=== PATIENT | male | born 1975 | race Caucasian/White ===

== ENCOUNTER 2020-07-24 14:23 | Inpatient (IN) | payer BC, SELFPAY ==
[~2020-07-24] VITALS: Ht 172.7 cm; Wt 159.7 kg
[2020-07-24 14:25] VITALS: Ht 172.7 cm; Wt 159.7 kg
[2020-07-24 15:38] LABS: CALCIUM 8.1 mg/dL (8.5-10.1); CARBON DIOXIDE 30.8 mmol/L (21-32); CHLORIDE SERUM 93 mmol/L (98-107); CREATININE SERUM 1.2 mg/dL (0.7-1.3); GFR1 > 60 mL/min; GLUCOSE SERUM 123 mg/dL (74-106); SODIUM SERUM 132 mmol/L (136-145)
[2020-07-24 15:42] LABS: BASOPHIL % 0.3 % (0-2); PLATELET COUNT 215 x10^3mcL (130-400); RED CELL DISTRIBUTION WIDTH 14.3 % (11.5-14.5)
[2020-07-24 15:44] LABS: ALKALINE PHOSPHATASE 49 U/L (46-116); ALT/SGPT 47 U/L (16-63); AST/SGOT 46 U/L (15-37); BILIRUBIN TOTAL 0.87 mg/dL (0.20-1.00); TOTAL PROTEIN, SERUM 7.4 g/dL (6.4-8.2)
[2020-07-24 15:45] LABS: ALBUMIN 3.1 g/dL (3.4-5.0)
[2020-07-24 19:53] VITALS: BP 127/77
[2020-07-24 20:55] LABS: CHOLESTEROL/HDL RATIO 4.3
[2020-07-24 21:45] VITALS: BP 143/67
[2020-07-25] VITALS (7 sets, daily range): BP systolic 99–147; BP diastolic 50–74
[2020-07-25 07:43] LABS: BASOPHIL % 0.3 % (0-2); PLATELET COUNT 208 x10^3mcL (130-400); RED CELL DISTRIBUTION WIDTH 14.3 % (11.5-14.5)
[2020-07-25 07:44] LABS: CALCIUM 8.3 mg/dL (8.5-10.1); CARBON DIOXIDE 30.4 mmol/L (21-32); CHLORIDE SERUM 94 mmol/L (98-107); GFR1 > 60 mL/min; GLUCOSE SERUM 126 mg/dL (74-106); MAGNESIUM 2.1 mg/dL (1.8-2.4); PHOSPHOROUS 2.1 mg/dL (2.5-4.9); SODIUM SERUM 133 mmol/L (136-145)
[2020-07-25 08:24] LABS: POTASSIUM SERUM 2.8 mmol/L (3.5-5.1)
[2020-07-25 20:04] LABS: microscopic required? YES; urine erythrocyte 2+ (NEGATIVE)
[2020-07-25 20:21] LABS: AMPHETAMINE QUAL UR NONE DETECTED (See below)
[2020-07-26 05:48] VITALS: BP 132/88
[2020-07-26 07:02] LABS: BASOPHIL % 0.3 % (0-2); PLATELET COUNT 286 x10^3mcL (130-400); RED CELL DISTRIBUTION WIDTH 14.3 % (11.5-14.5)
[2020-07-26 07:32] LABS: CALCIUM 8.9 mg/dL (8.5-10.1); CARBON DIOXIDE 29.1 mmol/L (21-32); CHLORIDE SERUM 95 mmol/L (98-107); CREATININE SERUM 1.2 mg/dL (0.7-1.3); GFR1 > 60 mL/min; GLUCOSE SERUM 155 mg/dL (74-106); MAGNESIUM 2.2 mg/dL (1.8-2.4); PHOSPHOROUS 1.9 mg/dL (2.5-4.9); POTASSIUM SERUM 3.2 mmol/L (3.5-5.1); SODIUM SERUM 135 mmol/L (136-145)
[2020-07-26 09:24] LABS: C REACTIVE PROTEIN 24.2 mg/dL (<=0.9)
[2020-07-26 13:06] VITALS: BP 128/70
[2020-07-26 15:06] LABS: BILIRUBIN DIRECT 0.36 mg/dL (0.0-0.2); BILIRUBIN TOTAL 0.7 mg/dL (0.20-1.00); TOTAL PROTEIN, SERUM 7.8 g/dL (6.4-8.2)
[2020-07-26 15:10] LABS: ALBUMIN 2.9 g/dL (3.4-5.0)
[2020-07-26 17:01] VITALS: BP 124/68
[2020-07-26 22:03] VITALS: BP 128/69
[2020-07-27 06:10] VITALS: BP 129/73
[2020-07-27 07:32] LABS: BASOPHIL % 0.1 % (0-2); PLATELET COUNT 311 x10^3mcL (130-400); RED CELL DISTRIBUTION WIDTH 14.1 % (11.5-14.5)
[2020-07-27 08:03] LABS: CARBON DIOXIDE 31.8 mmol/L (21-32); CHLORIDE SERUM 97 mmol/L (98-107); CREATININE SERUM 0.9 mg/dL (0.7-1.3); GFR1 > 60 mL/min; GLUCOSE SERUM 117 mg/dL (74-106); MAGNESIUM 2.4 mg/dL (1.8-2.4); PHOSPHOROUS 3.6 mg/dL (2.5-4.9); POTASSIUM SERUM 3.3 mmol/L (3.5-5.1); SODIUM SERUM 138 mmol/L (136-145)
[2020-07-27 08:18] VITALS: BP 107/55
[2020-07-27 09:11] LABS: BILIRUBIN DIRECT 0.4 mg/dL (0.0-0.2); BILIRUBIN TOTAL 0.7 mg/dL (0.20-1.00); TOTAL PROTEIN, SERUM 6.7 g/dL (6.4-8.2)
[2020-07-27 09:49] LABS: ALBUMIN 2.7 g/dL (3.4-5.0)
[2020-07-27 12:43] VITALS: BP 117/60
[2020-07-27 17:59] VITALS: BP 114/61
[2020-07-27 20:38] VITALS: BP 97/49
[2020-07-28 05:54] VITALS: BP 117/62
[2020-07-28 07:02] LABS: PLATELET COUNT 347 x10^3mcL (130-400); RED CELL DISTRIBUTION WIDTH 14.5 % (11.5-14.5)
[2020-07-28 07:10] LABS: BASOPHIL % 0 % (0-2)
[2020-07-28 07:37] LABS: C REACTIVE PROTEIN 9.5 mg/dL (<=0.9); CALCIUM 8.4 mg/dL (8.5-10.1); CARBON DIOXIDE 32.5 mmol/L (21-32); CHLORIDE SERUM 99 mmol/L (98-107); CREATININE SERUM 0.8 mg/dL (0.7-1.3); GFR1 > 60 mL/min; GLUCOSE SERUM 112 mg/dL (74-106); POTASSIUM SERUM 3.7 mmol/L (3.5-5.1); SODIUM SERUM 139 mmol/L (136-145)
[2020-07-28 08:20] LABS: BILIRUBIN DIRECT 0.24 mg/dL (0.0-0.2); BILIRUBIN TOTAL 0.61 mg/dL (0.20-1.00); TOTAL PROTEIN, SERUM 6.6 g/dL (6.4-8.2)
[2020-07-28 08:22] LABS: ALBUMIN 2.4 g/dL (3.4-5.0)
[2020-07-28 08:51] VITALS: BP 132/84
[2020-07-28 12:14] VITALS: BP 126/72
[2020-07-28 17:03] VITALS: BP 113/54
[2020-07-28 21:13] VITALS: BP 108/49
[2020-07-29 05:36] VITALS: BP 118/45
[2020-07-29 07:38] LABS: BASOPHIL % 0.3 % (0-2); PLATELET COUNT 388 x10^3mcL (130-400); RED CELL DISTRIBUTION WIDTH 14.3 % (11.5-14.5)
[2020-07-29 08:10] LABS: C REACTIVE PROTEIN 9.8 mg/dL (<=0.9); CALCIUM 8.8 mg/dL (8.5-10.1); CHLORIDE SERUM 98 mmol/L (98-107); CREATININE SERUM 0.8 mg/dL (0.7-1.3); GFR1 > 60 mL/min; GLUCOSE SERUM 99 mg/dL (74-106); MAGNESIUM 2.3 mg/dL (1.8-2.4); POTASSIUM SERUM 3.3 mmol/L (3.5-5.1); SODIUM SERUM 140 mmol/L (136-145)
[2020-07-29 08:42] VITALS: BP 126/67
[2020-07-29 09:25] LABS: BILIRUBIN TOTAL 0.73 mg/dL (0.20-1.00)
[2020-07-29 09:26] LABS: ALBUMIN 2.5 g/dL (3.4-5.0); TOTAL PROTEIN, SERUM 6.1 g/dL (6.4-8.2)
[2020-07-29 09:29] LABS: BILIRUBIN DIRECT 0.16 mg/dL (0.0-0.2)
[2020-07-29 13:58] VITALS: BP 135/82
[2020-07-29 17:25] VITALS: BP 117/57
[2020-07-29 21:20] VITALS: BP 114/71
[2020-07-30 05:29] VITALS: BP 127/55
[2020-07-30 07:36] LABS: ALBUMIN 2.4 g/dL (3.4-5.0); BILIRUBIN DIRECT 0.23 mg/dL (0.0-0.2); BILIRUBIN TOTAL 0.57 mg/dL (0.20-1.00); TOTAL PROTEIN, SERUM 6.5 g/dL (6.4-8.2)
[2020-07-30 08:23] VITALS: BP 110/69
[2020-07-30 08:44] LABS: C REACTIVE PROTEIN 6.2 mg/dL (<=0.9); CALCIUM 8.9 mg/dL (8.5-10.1); CARBON DIOXIDE 29.2 mmol/L (21-32); CHLORIDE SERUM 99 mmol/L (98-107); CREATININE SERUM 0.8 mg/dL (0.7-1.3); GFR1 > 60 mL/min; GLUCOSE SERUM 112 mg/dL (74-106); MAGNESIUM 2.2 mg/dL (1.8-2.4); POTASSIUM SERUM 3.9 mmol/L (3.5-5.1); SODIUM SERUM 138 mmol/L (136-145)
[2020-07-30 10:18] LABS: RED CELL DISTRIBUTION WIDTH 14.3 % (11.5-14.5)
[2020-07-30 10:22] LABS: BASOPHIL % 3.8 % (0-2)
[2020-07-30 10:23] LABS: PLATELET COUNT 501 x10^3mcL (130-400)
[2020-07-30 11:59] VITALS: BP 111/66
[2020-07-30 16:00] VITALS: BP 114/67
[2020-07-30 20:55] VITALS: BP 122/50
[2020-07-31 06:21] VITALS: BP 114/70
[2020-07-31 07:01] LABS: BASOPHIL % 0.4 % (0-2)
[2020-07-31 07:08] LABS: RED CELL DISTRIBUTION WIDTH 14.9 % (11.5-14.5)
[2020-07-31 07:14] LABS: C REACTIVE PROTEIN 3.5 mg/dL (<=0.9); CALCIUM 8.8 mg/dL (8.5-10.1); CARBON DIOXIDE 34.6 mmol/L (21-32); CHLORIDE SERUM 102 mmol/L (98-107); CREATININE SERUM 0.9 mg/dL (0.7-1.3); GFR1 > 60 mL/min; GLUCOSE SERUM 106 mg/dL (74-106); MAGNESIUM 2.1 mg/dL (1.8-2.4); POTASSIUM SERUM 3.5 mmol/L (3.5-5.1); SODIUM SERUM 141 mmol/L (136-145)
[2020-07-31 08:48] VITALS: BP 112/65
[2020-07-31 09:14] LABS: PLATELET COUNT 532 x10^3mcL (130-400)
[2020-07-31 12:15] VITALS: BP 111/63
[2020-07-31 16:14] VITALS: BP 105/58
[2020-07-31 20:37] VITALS: BP 118/63
[2020-08-01 05:40] VITALS: BP 137/78
[2020-08-01 08:41] VITALS: BP 115/72
[2020-08-01 12:22] VITALS: BP 115/60
[2020-08-01 16:07] VITALS: BP 115/68
[2020-08-01 20:14] VITALS: BP 110/69
[2020-08-02 04:57] VITALS: BP 113/67
[2020-08-02 07:20] LABS: BASOPHIL % 1.5 % (0-2)
[2020-08-02 07:37] VITALS: BP 130/73
[2020-08-02 07:57] LABS: C REACTIVE PROTEIN 2.2 mg/dL (<=0.9); CALCIUM 8.6 mg/dL (8.5-10.1); CARBON DIOXIDE 32.4 mmol/L (21-32); CHLORIDE SERUM 102 mmol/L (98-107); CREATININE SERUM 0.9 mg/dL (0.7-1.3); GFR1 > 60 mL/min; GLUCOSE SERUM 105 mg/dL (74-106); POTASSIUM SERUM 3.7 mmol/L (3.5-5.1); SODIUM SERUM 139 mmol/L (136-145)
[2020-08-02 08:07] LABS: RED CELL DISTRIBUTION WIDTH 14.8 % (11.5-14.5)
[2020-08-02 08:08] LABS: PLATELET COUNT 595 x10^3mcL (130-400)
[2020-08-02 12:54] VITALS: BP 133/80
[2020-08-02 17:11] VITALS: BP 127/64
[2020-08-02 21:33] VITALS: BP 118/67
[2020-08-03 06:22] VITALS: BP 118/70
[2020-08-03 07:51] LABS: BASOPHIL % 0.4 % (0-2)
[2020-08-03 07:59] LABS: CALCIUM 8.7 mg/dL (8.5-10.1); CARBON DIOXIDE 31.5 mmol/L (21-32); CHLORIDE SERUM 103 mmol/L (98-107); CREATININE SERUM 0.9 mg/dL (0.7-1.3); GFR1 > 60 mL/min; GLUCOSE SERUM 107 mg/dL (74-106); MAGNESIUM 2.4 mg/dL (1.8-2.4); POTASSIUM SERUM 3.6 mmol/L (3.5-5.1); SODIUM SERUM 140 mmol/L (136-145)
[2020-08-03 08:25] LABS: RED CELL DISTRIBUTION WIDTH 14.8 % (11.5-14.5)
[2020-08-03 08:43] VITALS: BP 130/61
[2020-08-03 11:11] LABS: PLATELET COUNT 539 x10^3mcL (130-400)
[2020-08-03 17:09] VITALS: BP 132/74
[2020-08-03 21:18] VITALS: BP 110/56
[2020-08-04 06:28] VITALS: BP 124/72
[2020-08-04 06:55] LABS: CALCIUM 9.3 mg/dL (8.5-10.1); CARBON DIOXIDE 32.4 mmol/L (21-32); CHLORIDE SERUM 105 mmol/L (98-107); CREATININE SERUM 0.9 mg/dL (0.7-1.3); GFR1 > 60 mL/min; GLUCOSE SERUM 105 mg/dL (74-106); POTASSIUM SERUM 4.4 mmol/L (3.5-5.1); SODIUM SERUM 142 mmol/L (136-145)
[2020-08-04 08:05] LABS: BASOPHIL % 0.6 % (0-2)
[2020-08-04 08:29] VITALS: BP 146/98
[2020-08-04 08:40] LABS: RED CELL DISTRIBUTION WIDTH 14.8 % (11.5-14.5)
[2020-08-04 08:41] LABS: PLATELET COUNT 565 x10^3mcL (130-400)
[2020-08-04 13:01] VITALS: BP 151/87
[2020-08-04 16:26] VITALS: BP 123/72
[2020-08-04 19:15] VITALS: BP 126/61
[2020-08-05 05:14] VITALS: BP 141/87
[2020-08-05 08:04] VITALS: BP 138/87
[2020-08-05 16:13] VITALS: BP 139/67
[2020-08-05 19:30] VITALS: BP 151/77
[2020-08-06 06:02] VITALS: BP 133/86
[2020-08-06] MEDS ORDERED: PROAIR RES117 MCG/Ac INH (08:54)
[2020-08-06] MEDS ORDERED: DECADRON4 MG PO (08:56)
[2020-08-06 09:33] VITALS: BP 126/91
[2020-08-06 12:24] VITALS: BP 136/81
[2020-08-06 16:55] VITALS: BP 125/83
== END 2020-08-06 18:00 | disposition home or self-care (01) | DRG 871 ==
LOC: ED 14:23 → DU 17:58
PROVIDERS: Emergency Medicine; Internal Medicine; Internal Medicine Critical Care Medicine; ADMIT Internal Medicine; ATTEND Internal Medicine
PROC: XW033E5 Introduction of Remdesivir Anti-infective into Peripheral Vein, Percutaneous Approach, New Technology Group 5 (ICD-10-PCS; 2020-07-26)
PROC: XW033E5 Introduction of Remdesivir Anti-infective into Peripheral Vein, Percutaneous Approach, New Technology Group 5 (ICD-10-PCS; principal; 2020-07-27)
PROC: XW033E5 Introduction of Remdesivir Anti-infective into Peripheral Vein, Percutaneous Approach, New Technology Group 5 (ICD-10-PCS; 2020-07-28)
PROC: XW033E5 Introduction of Remdesivir Anti-infective into Peripheral Vein, Percutaneous Approach, New Technology Group 5 (ICD-10-PCS; 2020-07-29)
PROC: XW033E5 Introduction of Remdesivir Anti-infective into Peripheral Vein, Percutaneous Approach, New Technology Group 5 (ICD-10-PCS; 2020-07-30)
PROC: XW13325 Transfusion of Convalescent Plasma (Nonautologous) into Peripheral Vein, Percutaneous Approach, New Technology Group 5 (ICD-10-PCS; 2020-07-30)
PROC: 30233L1 Transfusion of Nonautologous Fresh Plasma into Peripheral Vein, Percutaneous Approach (ICD-10-PCS; 2020-07-30)
DX: A41.9 Sepsis, unspecified organism (principal); U07.1 COVID-19; J96.01 Acute respiratory failure with hypoxia; J12.9 Viral pneumonia, unspecified; R73.9 Hyperglycemia, unspecified; E66.01 Morbid (severe) obesity due to excess calories; E87.6 Hypokalemia; Z68.37 Body mass index [BMI] 37.0-37.9, adult; E83.39 Other disorders of phosphorus metabolism; G47.33 Obstructive sleep apnea (adult) (pediatric)
CPT/HCPCS: 36600; 85378; G0378; J0456; J0696; J1100; J1644; J1650; J1940; J3535; J7030; J7040; J7050; J7060; Q0092; U0003-CS